=== PATIENT | female | born 1955 | race American Indian/Alaskan Native ===

== ENCOUNTER 2016-05-04 10:01 | Emergency (ER) | payer MEDICARE ==
[2016-05-04] MEDS ORDERED: TORADOL IM ONE (14:23)
[2016-05-04] MEDS ORDERED: DECADRON IM ONE (14:23)
[2016-05-04 15:34] VITALS: BP 168/100
--- NOTE | 2016-05-04 18:31 | Emergency Department Report ---
Entered by GARY AZUL, acting as scribe for YOU HENSON PA. ED Extremity Problem HPI - General Chief complaint: Extremity Problem,Nontraumatic Stated complaint: RT WRIST AND ELBOW PAIN/ARTHRITIS Time Seen by Provider: 05/04/16 14:28 Source: patient Mode of arrival: Ambulatory Limitations: No Limitations - History of Present Illness Initial comments: 60 y/o female with PMHx of diabetes and rheumatoid arthritis, presents to the ED c/o right wrist pain, right knee pain, and right elbow pain beginning intermittently 1 month ago and worsening yesterday. She states the symptoms are consistent with prior rheumatoid arthritis flareups. The symptoms are typically alleviated by cortisone injections in the affected joints, but she is unable to afford a follow-up visit with her wellness director. She denies SOB, chest pain, abdominal pain, nausea, vomiting, diarrhea, weakness, numbness, and recent injury to the affected areas. The symptoms are not alleviated with OTC ibuprofen -: month(s) (1 month, worse yesterday) Location: other (right knee, right wrist, right elbow) History of Same: Yes (Hx of rheumatoid arthritis, symptoms consistent with prior flareups) Radiation: none Severity scale (0 -10): 6 Consistency: intermittent Improves with: other (cortisone shots in joint) Worsens with: palpation Associated Symptoms: denies: chest pain, shortness of breath, fever, other ( nausea, vomiting diarrhea, abdominal pain, weakness, numbness) - Related Data Home Medications Medication Instructions Recorded Confirmed Last Taken Aspirin [Aspirin BABY CHEW TAB] 81 mg PO QDAY 01/18/15 01/18/15 01/18/15 Hydroxyurea [Hydrea] 500 mg PO DAILY 01/18/15 01/18/15 01/17/15 amLODIPine [Norvasc] 5 mg PO DAILY 01/18/15 01/18/15 01/17/15 \ Previous Rx's Medication Instructions Recorded Last Taken Type Hydroxyurea [Hydrea] 500 mg PO DAILY capsule 01/19/15 Unknown Rx ISOSORBIDE MONOnitrate [Imdur ER] 60 mg PO QDAY #30 tablet 01/19/15 Unknown Rx Metoprolol [Lopressor TAB] 50 mg PO BID #60 tablet 01/19/15 Unknown Rx Meloxicam [Mobic] 7.5 mg PO QDAY #30 tablet 05/04/16 Unknown Rx Allergies Allergy/AdvReac Type Severity Reaction Status Date / Time naproxen Allergy Hives Verified 01/18/15 01:47 ED Review of Systems Constitutional: denies: fever Respiratory: denies: shortness of breath Cardiovascular: denies: chest pain Gastrointestinal: denies: abdominal pain, nausea, vomiting, diarrhea Musculoskeletal: other (right wrist pain, right knee pain, right elbow pain) Neurological: denies: weakness, numbness ED Past Medical Hx - Past Medical History Hx Hypertension: Yes Hx Congestive Heart Failure: No Hx Diabetes: No Hx Asthma: No Hx COPD: No Additional medical history: POLYCYTHEMIA VERA - Surgical History Hx Appendectomy: Yes Additional Surgical History: HYSTERECTOMY - Social History Smoking Status: Never Smoker - Medications Home Medications: Home Medications Medication Instructions Recorded Confirmed Last Taken Type Aspirin [Aspirin BABY CHEW TAB] 81 mg PO QDAY 01/18/15 01/18/15 01/18/15 History Hydroxyurea [Hydrea] 500 mg PO DAILY 01/18/15 01/18/15 01/17/15 History amLODIPine [Norvasc] 5 mg PO DAILY 01/18/15 01/18/15 01/17/15 History \ Hydroxyurea [Hydrea] 500 mg PO DAILY capsule 01/19/15 Unknown Rx ISOSORBIDE MONOnitrate [Imdur ER] 60 mg PO QDAY #30 tablet 01/19/15 Unknown Rx Metoprolol [Lopressor TAB] 50 mg PO BID #60 tablet 01/19/15 Unknown Rx Meloxicam [Mobic] 7.5 mg PO QDAY #30 tablet 05/04/16 Unknown Rx ED Physical Exam - General Limitations: No Limitations General appearance: alert, in no apparent distress - Head Head exam: Present: atraumatic, normocephalic - Eye Eye exam: Present: normal appearance - Neck Neck exam: Present: normal inspection, full ROM (supple). Absent: tenderness, lymphadenopathy - Respiratory Respiratory exam: Present: normal lung sounds bilaterally. Absent: respiratory distress - Cardiovascular Cardiovascular Exam: Present: regular rate, normal rhythm, normal heart sounds. Absent: systolic murmur, diastolic murmur, rubs, gallop - GI/Abdominal GI/Abdominal exam: Present: soft, normal bowel sounds. Absent: tenderness, guarding, rebound - Extremities Exam Extremities exam: Present: normal inspection, full ROM (right knee, right wrist , right elbow), tenderness (minimal right elbow,right knee and right wrist ), normal capillary refill (capillary refill is less than two seconds, peripheral pulses intact), joint swelling (right wrist). Absent: other (crepitus, deformity) - Back Exam Back exam: Present: normal inspection, full ROM. Absent: paraspinal tenderness , vertebral tenderness - Neurological Exam Neurological exam: Present: alert, oriented X3 - Psychiatric Psychiatric exam: Present: normal affect, normal mood - Skin Skin exam: Present: warm, dry, intact ED Course Vital Signs 05/04/16 11:35 Temperature 98.1 F Pulse Rate 78 Respiratory 20 Rate Blood Pressure 165/103 O2 Sat by Pulse 100 Oximetry ED Medical Decision Making - Lab Data Vital Signs 05/04/16 11:35 Temperature 98.1 F Pulse Rate 78 Respiratory 20 Rate Blood Pressure 165/103 O2 Sat by Pulse 100 Oximetry - Medical Decision Making 60 y/o female presents complaining of right wrist pain, right knee pain, and right elbow pain beginning intermittently 1 month ago and worsening yesterday. Positive for history of rheumatoid arthritis. Explained to patient that we were unable to give 20 shots at the emergency department. Patient was given Decadron and Toradol and reported some symptomatic relief. She is recommended to follow up with her wellness director. Patient is in no acute distress at this time. She will be discharged home and is encouraged to follow up with a primary care provider. She will be sent home on Meloxicam and is encouraged to return to the emergency room for any worsening symptoms. ED Disposition Clinical Impression: Rheumatoid arthritis Qualifiers: Rheumatoid arthritis location: multiple sites Rheumatoid factor presence: unspecified presence Qualified Code(s): M06.9 - Rheumatoid arthritis, unspecified Disposition: DISCHARGED TO HOME OR SELFCARE Is pt being admited?: No Does the pt Need Aspirin: No Condition: Stable Instructions: Rheumatoid Arthritis (ED) Additional Instructions: Follow-up with primary care provider and wellness director. Return to the emergency department if symptoms worsen. Prescriptions: Meloxicam [Mobic] 7.5 mg PO QDAY #30 tablet Referrals: CLINT MAYO MD [Other] - 3-5 Days JADYN JAUREGUI MD [Staff Physician] - 3-5 Days Forms: Work/School Release Form(ED) Time of Disposition: 15:19 This documentation as recorded by the enrriqueibJORGE ALBERTO betancourt GRACE,accurately reflects the service I personally performed and the decisions made by ,YOU HENSON PA.
== END 2016-05-04 15:33 | disposition home or self-care (01) ==
LOC: ED 10:01
DX: M06.9 Rheumatoid arthritis, unspecified (principal); I10 Essential (primary) hypertension
CPT/HCPCS: 96372; 99282; J1100; J1885

== ENCOUNTER 2020-05-17 11:15 | Observation (INO) | payer MEDICARE ==
--- NOTE | 2020-05-17 11:50 | Emergency Department Report ---
ED General Adult HPI - General Chief complaint: Syncope Stated complaint: SYNCOPE PUI?: No Time Seen by Provider: 05/17/20 11:35 Source: patient, EMS (Verbal report received from emergency medical services. EMS documentation not available at time of chart dictation ), RN notes reviewed, old records reviewed Mode of arrival: Stretcher Limitations: Altered Mental Status, Physical Limitation - History of Present Illness Initial comments: The patient was evaluated in the emergency department for symptoms described in the history of present illness. He/she was evaluated in the context of the global COVID-19 pandemic, which necessitated consideration that the patient might be at risk for infection with the virus that causes COVID-19. Institutional protocols and algorithms that pertain to the evaluation of patients at risk for COVID-19 are in a state of rapid change based on information released by regulatory bodies including the CDC and federal and state organizations. These policies and algorithms were followed during the patient's care in the emergency department. Please note that these policies, procedures and recommendations changed on a rapid basis. The patient is a 64-year-old female. She is not known to myself previously. She has a history of hypertension. She is brought to the hospital by EMS after episode of syncope at work. The patient is altered, and does not answer most of my questions. History entirely obtained from EMS, and from patient's coworkers, Officer Bernard, and Officer Jhonny. Apparently, the patient was in his usual state of health this morning, when she received bad news (a family member /.) Immediately after receiving this news, the patient loss consciousness. EMS and her accompanying coworkers tell me that she did not fall or hit her head, and that she was caught by passersby. EMS tells me that the patient had normal Accu-Chek in the field, was intermittently speaking to them in the field, and had a negative Warrington stroke scale. They do report that the patient was moving 4 extremities, but had to be assisted to a metal chair. In the emergency room, the patient is initially awake, but has her eyes closed, does not respond to my questions. She then responds to my questions very softly. She will not tell me if she is having physical pain. She does follow commands. She indicates that she is having global weakness. I extensively and exhaustively and multiple times counseled the patient that we needed her to participate with her physical examination and history, and provide open ended and close ended responses to the best of her ability, in order to exclude time sensitive conditions, such as stroke, myocardial infarction, and arrhythmia. Initially, the patient was nonverbal, and then became very softly verbal. However, she would speak in mostly 1 word and short sentences, and during her motor examination, was not able to lift up her bilateral upper extremities to a significant amount, and demonstrated 3.5 out of 5 strength in 4 extremities. Her colleagues tell me that her last known well time is 10:20 AM. Therefore, code stroke was called overhead. Of note, patient had a CT scan of her chest in 2017 at this hospital, which was negative for pulmonary embolism. She had a cardiac nuclear stress test at this hospital in 2014, which was negative for ischemic findings. The patient is not able to describe the qualitative nature of her symptoms, exacerbating factors, relieving factors, or aggravating factors -: hour(s) Quality: other Consistency: other Improves with: other Worsens with: other Associated Symptoms: other - Related Data Home Medications Medication Instructions Recorded Confirmed Last Taken Aspirin [Aspirin BABY CHEW TAB] 81 mg PO QDAY 01/18/15 01/18/15 01/18/15 Hydroxyurea [Hydrea] 500 mg PO DAILY 01/18/15 01/18/15 01/17/15 amLODIPine 5 mg PO DAILY 01/18/15 01/18/15 01/17/15 \ Previous Rx's Medication Instructions Recorded Last Taken Type Hydroxyurea 500 mg PO DAILY capsule 01/19/15 Unknown Rx ISOSORBIDE MONOnitrate [Imdur ER] 60 mg PO QDAY #30 tablet 01/19/15 Unknown Rx Metoprolol [Lopressor TAB] 50 mg PO BID #60 tablet 01/19/15 Unknown Rx Meloxicam [Mobic] 7.5 mg PO QDAY #30 tablet 05/04/16 Unknown Rx Allergies Allergy/AdvReac Type Severity Reaction Status Date / Time naproxen Allergy Hives Verified 05/17/20 11:34 ED Review of Systems ROS: Stated complaint: SYNCOPE Other details as noted in HPI Comment: Unobtainable due to pts medical conditions ED Past Medical Hx - Past Medical History Previous Medical History?: Yes Hx Hypertension: Yes Hx Congestive Heart Failure: No Hx Diabetes: No Hx Asthma: No Hx COPD: No Additional medical history: POLYCYTHEMIA VERA - Surgical History Past Surgical History?: Yes Hx Appendectomy: Yes Additional Surgical History: HYSTERECTOMY - Social History Smoking Status: Never Smoker Substance Use Type: None - Medications Home Medications: Home Medications Medication Instructions Recorded Confirmed Last Taken Type Aspirin [Aspirin BABY CHEW TAB] 81 mg PO QDAY 01/18/15 01/18/15 01/18/15 History Hydroxyurea [Hydrea] 500 mg PO DAILY 01/18/15 01/18/15 01/17/15 History amLODIPine 5 mg PO DAILY 01/18/15 01/18/15 01/17/15 History \ Hydroxyurea 500 mg PO DAILY capsule 01/19/15 Unknown Rx ISOSORBIDE MONOnitrate [Imdur ER] 60 mg PO QDAY #30 tablet 01/19/15 Unknown Rx Metoprolol [Lopressor TAB] 50 mg PO BID #60 tablet 01/19/15 Unknown Rx Meloxicam [Mobic] 7.5 mg PO QDAY #30 tablet 05/04/16 Unknown Rx ED Physical Exam - General Limitations: Altered Mental Status, Physical Limitation General appearance: anxious, in distress - Head Head exam: Present: atraumatic, normocephalic - Eye Eye exam: Present: normal appearance, PERRL, EOMI, other (Patient initially rolls her eyes upwards when I attempt to do a pupillary examination. She then opens her eyes and flutters them.). Absent: nystagmus - ENT ENT exam: Present: normal exam, normal orophraynx, mucous membranes moist, normal external ear exam - Neck Neck exam: Present: normal inspection, full ROM. Absent: tenderness, meningismus - Respiratory Respiratory exam: Present: normal lung sounds bilaterally. Absent: respiratory distress, wheezes, rales, rhonchi, stridor, decreased breath sounds - Cardiovascular Cardiovascular Exam: Present: regular rate, normal rhythm, normal heart sounds. Absent: bradycardia, tachycardia, irregular rhythm, systolic murmur, diastolic murmur, rubs, gallop - GI/Abdominal GI/Abdominal exam: Present: soft. Absent: distended, tenderness, guarding, rebound, rigid, pulsatile mass - Extremities Exam Extremities exam: Present: normal inspection, full ROM, other (2+ pulses noted in the bilateral upper and lower extremities. There is no palpable cord. nega tive Homans sign. Muscular compartments are soft. The pelvis is stable.). Absent: pedal edema, calf tenderness - Back Exam Back exam: Present: normal inspection, full ROM. Absent: tenderness, CVA tenderness (R), CVA tenderness (L), paraspinal tenderness, vertebral tenderness - Neurological Exam Neurological exam: Present: altered, other (There is no facial droop. The tongue is midline. The extraocular movements are intact bilaterally. There is 3.5 out of 5 strength in 4 extremities. Sensation is intact to light touch in 4 extremities) - Psychiatric Psychiatric exam: Present: anxious. Absent: homicidal ideation, suicidal ideation - Skin Skin exam: Present: warm, dry, intact, normal color. Absent: rash ED Course Vital Signs 05/17/20 05/17/20 05/17/20 12:20 12:31 13:00 Temperature 98.7 F Pulse Rate 92 H 87 80 Respiratory 22 18 16 Rate Blood Pressure 169/84 164/89 O2 Sat by Pulse 96 100 100 Oximetry 05/17/20 05/17/20 05/17/20 14:00 14:21 14:37 Temperature Pulse Rate 74 Respiratory 13 18 18 Rate Blood Pressure 172/95 O2 Sat by Pulse 98 100 Oximetry - Reevaluation(s) Reevaluation #1: 05/17/20 11:54 Differential diagnosis, including but not limited to: Orthostasis, vagal event, structural cardiac disease, stroke, conversion disorder, electrolyte derangement, hypertensive urgency/press syndrome Assessment and plan: 64-year-old female who is hypertensive, with episode of syncope after receiving bad news, who appears to be globally weak, and will follow some commands, last known well time is 10:21 AM. Code stroke called overhead. Multiple times I explained to the patient the need for her to openly participate in her history and physical examination, and to provide open-ended and close ended answers and responses however, she was not able to do so fully, although she was able to participate her exam in a limited fashion. We will activate code stroke protocol to exclude time sensitive diagnosis, and obtain neurology recommendations as to the appropriateness of TPA for this patient. However, given the temporal course and sequence of events, I think it is unlikely that the patient will be experiencing disabling neurologic deficit that would require TPA. We will therefore obtain CT scan of the brain, and CT angiogram head and neck to exclude stroke, dissection, large vessel occlusion. We will check additional laboratory studies, EKG, and x-ray of the chest. We will reassess after initial data points During the patient's history and physical, she specifically denied homicidality, suicidality and overdose to myself. The patient tells me that she was very upset about her mother recently passing away 05/17/20 13:02 CT scan of the brain, CT angiogram head and neck negative for acute large vessel occlusion/emergent pathology. Patient awake, has intermittent effort and variable effort with her bilateral upper and lower extremities. This makes ischemic stroke very unlikely at this time, and risks of TPA outweigh benefits of TPA. Patient seen in conjunction with stroke neurology, Dr. Echevarria, who agrees with this assessment and recommendation. Remainder of laboratory studies pending, EKG pending. 05/17/20 13:59 Patient awake, alert, oriented, mental status and motor examination much improved. Patient now complaining of frontal headache, which started after she received her bad news. The headache is not sudden or thunderclap in nature. The headache is not maximal in intensity. The headache is not described as the worst headache of her life. She denies loss of taste and smell, hematemesis, bright red blood per rectum, dysuria, she is amenable to admission and hospitalization I have updated the patient on her current findings and laboratory studies, chemistry pending at this time 05/17/20 14:44 Chemistry unremarkable. Patient remains awake, alert, oriented, in no acute distress. 05/17/20 15:14 Dr Miller to admit ED Medical Decision Making - Lab Data Result diagrams: 05/17/20 12:22 05/17/20 13:21 Vital Signs 05/17/20 12:31 Temperature 98.7 F Pulse Rate 87 Respiratory 18 Rate Blood Pressure 169/84 O2 Sat by Pulse 100 Oximetry - EKG Data -: EKG Interpreted by Me EKG shows normal: sinus rhythm Rate: normal - EKG Data 05/17/20 13:59 EKG today's interpreted at 13: 22 Sinus rhythm, 79 bpm, normal axis, left ventricular hypertrophy, QTC prolonged, abnormal EKG, not a STEMI, unchanged from prior EKG from 01/2018. - Radiology Data Radiology results: report reviewed, image reviewed CT head/brain wo con INDICATION / CLINICAL INFORMATION: 64 years Female; MAIN. TECHNIQUE: Routine CT head without contrast. All CT scans at this location are performed using CT dose reduction for ALARA by means of automated exposure control. COMPARISON: None. FINDINGS: BRAIN / INTRACRANIAL CONTENTS: There is mild cerebral and pontine white matter disease most consistent with microvascular angiopathy. There is also mild cerebral atrophy. The particular system is correspondingly appropriate in size and configuration. There is no clear CT evidence of acute intracranial hemorrhage or significant mass effect. ORBITS: No significant abnormality of visualized orbits. SINUSES / MASTOIDS: There is notable opacification involving right sphenoid sinus indicative of presence of retention cyst or polyp. The remaining visualized paranasal sinuses are pneumatized. CRANIOCERVICAL JUNCTION: No significant abnormality. ADDITIONAL FINDINGS: None. IMPRESSION: 1. There is mild microvascular angiopathy without CT evidence of acute intracranial hemorrhage. The study was specified as code stroke and called emergently to Dr. Navarro in the ER at 11:14 AM Central standard time. Signer Name: Finesse Oseguera MD Signed: 05/17/2020 11:16 AM Workstation Name: [id number] CT angio head HISTORY: Stroke symptoms COMPARISON: CT head May 17, 2020. TECHNIQUE: CTA of the head is performed after IV contrast. 3-D/MIP reformats were postprocessed. Percentage stenosis is determined by direct quantitative measurements of diseased internal carotid artery diameter compared with normal distal internal carotid artery reference segments or by criteria similar to NASCET where applicable. All CT scans at this location are performed using CT dose reduction for ALARA by means of automated exposure control. FINDINGS: CTA HEAD: Intracranial internal carotid arteries: Mild atherosclerosis. No occlusion or significant stenosis. Anterior cerebral arteries: No occlusion or significant stenosis. Middle cerebral arteries: No occlusion or significant stenosis. Intracranial vertebral arteries: No occlusion or significant stenosis. Basilar artery: No occlusion or significant stenosis. Posterior cerebral arteries: No occlusion or significant stenosis. No aneurysm. Additional findings: None. IMPRESSION: 1. CTA HEAD: No large proximal vessel occlusion. Signer Name: Gonsalo Jenkins MD Signed: 05/17/2020 11:39 AM Workstation Name: [id number] CT angio neck INDICATION / CLINICAL INFORMATION: 64 years Female; MAIN. TECHNIQUE: Thin cut axial images obtained through the head during IV bolus contrast administration. Sagittal, coronal, and 3 plane MIP reconstructions performed by the technologist. NASCET type criteria used evaluate stenoses. All CT scans at this location are performed using CT dose reduction for ALARA by means of automated exposure control. COMPARISON: None available. FINDINGS: CAROTID ARTERIES: The motion and beam hardening degrade the image quality at. There are small foci of calcification at the carotid bifurcations bilaterally at. However, there is no clear CTA evidence of significant stenosis of the internal carotid arteries by NASCET criteria. VERTEBRAL ARTERIES: The proximal vertebral arteries are also obscured by the degree of beam hardening at. However, there is no clear CTA evidence of significant focal stenosis involving cervical segments at. A small focus of calcification is noted at the origin of the right vertebral artery at. ARCH: There is no evidence of significant stenosis involving arch vessels. ADDITIONAL FINDINGS: Advanced degenerative the disc changes at C5-6 and C6-7. There is slight anterolisthesis at C4-5. IMPRESSION: There is no CTA evidence of significant stenosis involving cervical carotid or vertebral arteries by NASCET criteria. There was some delay in the dictation of this exam in that the initial study was incomplete. The study was dictated on an emergent basis at 12:06 PM Central standard time. Signer Name: Finesse Oseguera MD Signed: 05/17/2020 12:07 PM Workstation Name: [id number] Critical care attestation.: If time is entered above; I have spent that time in minutes in the direct care of this critically ill patient, excluding procedure time. ED Disposition Clinical Impression: Syncope, Altered mental status, Weakness, Anemia Disposition: OP ADMIT IP TO THIS HOSP Is pt being admited?: Yes Does the pt Need Aspirin: Yes Condition: Stable Instructions: Syncope (ED) Referrals: PRIMARY CARE, [Primary Care Provider] - 3-5 Days - Assessment Assessment Interval: Baseline - Level of Consciousness 1a. Level of Consciousness: arousable/minor stimuli - LOC Questions 1b. LOC Questions: answers both correctly - LOC Command 1c. LOC Commands: performs tasks correctly - Best Gaze 2. Best Gaze: normal (blinks in response to threat) - Visual 3. Visual: no visual loss - Facial Palsy 4. Facial Palsy: normal symmetrical movement - Motor Arm 5a. Motor Arm Left: some gravity effort 5b. Motor Arm Right: some gravity effort - Motor Leg 6a. Motor Leg Left: some gravity effort 6b. Motor Leg Right: some gravity effort - Limb Ataxia 7. Limb Ataxia: amputation (patient not able to participate in this exam) - Sensory 8. Sensory: normal - Best Language 9. Best Language: mild/moderate aphasia - Dysarthria 10. Dysarthria: mild/moderate dysarthria - Extinction and Inattention 11. Extinction/Inattention: visual/tactile inattention - Scoring Total Score: 12 Stroke Severity: Moderate Stroke
--- NOTE | 2020-05-17 12:20 | Cat Scan Report ---
CT head/brain wo con INDICATION / CLINICAL INFORMATION: 64 years Female; MAIN. TECHNIQUE: Routine CT head without contrast. All CT scans at this location are performed using CT dos e reduction for ALARA by means of automated exposure control. COMPARISON: None. FINDINGS: BRAIN / INTRACRANIAL CONTENTS: There is mild cerebral and pontine white matter disease most consisten t with microvascular angiopathy. There is also mild cerebral atrophy. The particular system is corres pondingly appropriate in size and configuration. There is no clear CT evidence of acute intracranial hemorrhage or significant mass effect. ORBITS: No significant abnormality of visualized orbits. SINUSES / MASTOIDS: There is notable opacification involving right sphenoid sinus indicative of prese nce of retention cyst or polyp. The remaining visualized paranasal sinuses are pneumatized. CRANIOCERVICAL JUNCTION: No significant abnormality. ADDITIONAL FINDINGS: None. IMPRESSION: 1. There is mild microvascular angiopathy without CT evidence of acute intracranial hemorrhage. The study was specified as code stroke and called emergently to Dr. Navarro in the ER at 11:14 AM [facility] standard time. Signer Name: Finesse Oseguera MD Signed: 05/17/2020 12:16 PM Workstation Name: [id number]
--- NOTE | 2020-05-17 12:30 | Consultation ---
Medications and Allergies Allergies Allergy/AdvReac Type Severity Reaction Status Date / Time naproxen Allergy Hives Verified 05/17/20 11:34 Home Medications Medication Instructions Recorded Confirmed Last Taken Type Aspirin [Aspirin BABY CHEW TAB] 81 mg PO QDAY 01/18/15 01/18/15 01/18/15 History Hydroxyurea [Hydrea] 500 mg PO DAILY 01/18/15 01/18/15 01/17/15 History amLODIPine 5 mg PO DAILY 01/18/15 01/18/15 01/17/15 History \ Hydroxyurea 500 mg PO DAILY capsule 01/19/15 Unknown Rx ISOSORBIDE MONOnitrate [Imdur ER] 60 mg PO QDAY #30 tablet 01/19/15 Unknown Rx Metoprolol [Lopressor TAB] 50 mg PO BID #60 tablet 01/19/15 Unknown Rx Meloxicam [Mobic] 7.5 mg PO QDAY #30 tablet 05/04/16 Unknown Rx Assessment and Plan [facility] Consult Note # Demographics Consult Type: 0-6 hour Stroke First Name: Libby Last Name: Flash Date of : 1955 Age: 64 Gender: female Time of initial page (Mary Alice Time): 05-17-2020, 09:53 Time of return call (Mary Alice Time): 05-17-2020, 09:53 # HPI Additional History: 64F with in the family, syncopal event and then 10:21 local time hysterical, passed out, this per materials handler who was present. No reported trauma with this event. Non-focal, generally weak. Patient reports feelilng weak all over. # Scores Time of exam and NIHSS ([facility]): 05-17-2020, 10:23:00 Level of Consciousness 1a: [0] = Alert; keenly responsive LOC Questions 1b: [0] = Answers both questions correctly LOC Commands 1c: [0] = Performs both tasks correctly Best Gaze 2: [0] = Normal Visual 3: [0] = No visual loss Facial Palsy 4: [0] = Normal symmetrical movements Motor Arm Left 5a: [1] = Drift Motor Arm Right 5b: [1] = Drift Motor Leg Left 6a: [1] = Drift Motor Leg Right 6b: [1] = Drift Limb Ataxia 7: [0] = Absent Sensory 8: [0] = Normal Best Language 9: [0] = No aphasia Dysarthria 10: [1] = [id number] dysarthria Extinction and Inattention 11: [0] = No abnormality NIHSS Total: 5 # PMH-FH-SH Past Medical History: hypertension # Data Time Head CT personally ready by me ( Time): 05-17-2020, 10:23:[address]: preliminarily reviewed by me, please refer to radiology read for official reading, no bleed CTA Head: preliminarily reviewed by me, please refer to radiology read for offi cial reading, no large vessel occlusion # Assessment Impression: Altered Mental Status, generally weak following emotional trauma. Effort variable, poorly sustained. Stroke is not felt to be the most likely etiology for her presentation. Risk>benefit with available data. # Plan Thrombolytic/Intervention: NOT IV Alteplase or IA Intervention Alteplase Exclusion: other (see below), risk > benefit Intraarterial Exclusion: no large vessel occlusion (LVO) Other: I have discussed my recommendations with the referring provider Additional Recommendations: If not improving, consider MRI brain. Disposition: admit Electronically signed at 05/17/2020 - 10:29 time by Justen Echevarria MD Electronically signed at 05/17/2020 - : time by Justen Echevarria MD
--- NOTE | 2020-05-17 12:43 | Cat Scan Report ---
CT angio head HISTORY: Stroke symptoms COMPARISON: CT head May 17, 2020. TECHNIQUE: CTA of the head is performed after IV contrast. 3-D/MIP reformats were postprocessed. Per centage stenosis is determined by direct quantitative measurements of diseased internal carotid arter y diameter compared with normal distal internal carotid artery reference segments or by criteria angi lar to NASCET where applicable. All CT scans at this location are performed using CT dose reduction f or ALARA by means of automated exposure control. FINDINGS: CTA HEAD: Intracranial internal carotid arteries: Mild atherosclerosis. No occlusion or significant stenosis. Anterior cerebral arteries: No occlusion or significant stenosis. Middle cerebral arteries: No occlusion or significant stenosis. Intracranial vertebral arteries: No occlusion or significant stenosis. Basilar artery: No occlusion or significant stenosis. Posterior cerebral arteries: No occlusion or significant stenosis. No aneurysm. Additional findings: None. IMPRESSION: 1. CTA HEAD: No large proximal vessel occlusion. Signer Name: Gonsalo Jenkins MD Signed: 05/17/2020 12:39 PM Workstation Name: [id number]
[2020-05-17 12:45] LABS: Hematocrit 28.4 % (30.3-42.9); Hemoglobin 9.2 gm/dl (10.1-14.3); Mean Corpuscular HGB Conc 32 % (30-34); Red Blood Count 4.12 M/mm3 (3.65-5.03)
[2020-05-17 12:48] LABS: Mean Corpuscular Volume 69 fl (79-97); Platelet Count 364 K/mm3 (140-440); Red Cell Distribution Width 24.4 % (13.2-15.2)
[2020-05-17 12:56] LABS: INR 1.26 (0.87-1.13); Partial Thromboplastin Time 34.2 Sec. (24.2-36.6); Thrombin Time 18.4 Sec. (15.1-19.6)
--- NOTE | 2020-05-17 13:11 | Cat Scan Report ---
CT angio neck INDICATION / CLINICAL INFORMATION: 64 years Female; MAIN. TECHNIQUE: Thin cut axial images obtained through the head during IV bolus contrast administration. S agittal, coronal, and 3 plane MIP reconstructions performed by the technologist. NASCET type criteria used evaluate stenoses. All CT scans at this location are performed using CT dose reduction for ALAR A by means of automated exposure control. COMPARISON: None available. FINDINGS: CAROTID ARTERIES: The motion and beam hardening degrade the image quality at. There are small foci of calcification at the carotid bifurcations bilaterally at. However, there is no clear CTA evidence of significant stenosis of the internal carotid arteries by NASCET criteria. VERTEBRAL ARTERIES: The proximal vertebral arteries are also obscured by the degree of beam hardening at. However, there is no clear CTA evidence of significant focal stenosis involving cervical segment s at. A small focus of calcification is noted at the origin of the right vertebral artery at. ARCH: There is no evidence of significant stenosis involving arch vessels. ADDITIONAL FINDINGS: Advanced degenerative the disc changes at C5-6 and C6-7. There is slight anterol isthesis at C4-5. IMPRESSION: There is no CTA evidence of significant stenosis involving cervical carotid or vertebral arteries by NASCET criteria. There was some delay in the dictation of this exam in that the initial study was incomplete. The stud y was dictated on an emergent basis at 12:06 PM [facility] standard time. Signer Name: Finesse Oseguera MD Signed: 05/17/2020 1:07 PM Workstation Name: [id number]
[2020-05-17 13:48] LABS: Bilirubin,Urine NEG (Negative); Blood,Urine NEG (Negative); Color,Urine Straw (Yellow); Urobilinogen,Urine < 2.0 mg/dL (<2.0)
[2020-05-17 13:56] LABS: Amphetamine Screen,Urine Negative; Benzodiazepines Screen,Urine Negative; Cannabinoid Screen,Urine Negative; Cocaine Screen,Urine Negative; Methadone Screen,Urine Negative; Opiate Screen,Urine Negative
[2020-05-17] MEDS ORDERED: ACETAMINOPHEN 325 MG TAB PO ONE (13:58)
[2020-05-17] MEDS ORDERED: METOCLOPRAMIDE 10 MG/2 ML INJ IV ONE (13:58)
[2020-05-17] MEDS ORDERED: diphenhydrAMINE 50 MG/ML VIAL IV ONE (13:58)
[2020-05-17 14:01] LABS: Total Cells Counted 100
[2020-05-17 14:01] LABS: Alanine Aminotransferase 9 units/L (7-56); Albumin 3.4 g/dL (3.9-5); Blood Urea Nitrogen 10 mg/dL (7-17); Calcium 7.8 mg/dL (8.4-10.2); Hemolysis Index 2
[2020-05-17 14:02] LABS: Anisocytosis 2+; Band Neutrophils # (Manual) 0.9 K/mm3; Hypochromasia 1+; Myelocytes # (Manual) 0.1 K/mm3; Poikilocytosis 3+
[2020-05-17 14:03] LABS: Helmet Cells Rare; Ovalocytes Few; Tear Drop Cells 2+
[2020-05-17 14:04] LABS: Platelet Estimate Consistent w Auto
[2020-05-17 14:06] LABS: BUN/Creatinine Ratio 14
--- NOTE | 2020-05-17 14:22 | XRay Report ---
CHEST 1 VIEW INDICATION: syncope. COMPARISON: 01/25/2018 FINDINGS: Support devices: None. Heart: Within normal limits. Lungs/Pleura: No acute air space or interstitial disease. Additional findings: None. IMPRESSION: No acute findings. Signer Name: Waldo aGrcia Jr, MD Signed: 05/17/2020 2:13 PM Workstation Name: [id number]
[2020-05-17] MEDS ORDERED: CLOPIDOGREL 75 MG TAB PO ONE (15:15)
[2020-05-17] MEDS: CLOPIDOGREL 75 MG TAB PO SCH (18:06)
[2020-05-17] MEDS ORDERED: HYDROXYUREA 500 MG CAP PO PRN (21:15)
[2020-05-17] MEDS ORDERED: ONDANSETRON 4 MG/2 ML INJ IV PRN (21:16)
[2020-05-17] MEDS ORDERED: HYDROmorphone 1 MG/1 ML INJ IV PRN (21:16)
[2020-05-17] MEDS ORDERED: oxyCODONE /ACETAMINOPHEN 5-325MG TAB PO PRN (21:16)
[2020-05-17] MEDS ORDERED: METOCLOPRAMIDE 10 MG/2 ML INJ IV PRN (21:16)
--- NOTE | 2020-05-17 21:23 | History and Physical Report ---
History of Present Illness Date of examination: 05/17/20 Date of admission: 05/17/20 15:14 Chief complaint: Passed out this morning History of present illness: 64-year-old female with history of hypertension brought in by EMS after an episode of syncope at work. Patient is also third and did not answer questions initially. Apparently her mother and on listening to the news she passed out. No chest pain. No diaphoresis. No shortness of breath. During my examination patient was coherent and able to answer all the questions appropriately. No second syncopal attacks in the past. Her mother this morning which made her very anxious and emotional and passed out. No fever or chills. No exposure to coronavirus - Past Medical History Previous Medical History?: Yes --Hypertension: Yes Additional medical history: POLYCYTHEMIA VERA - Surgical History Past Surgical History?: Yes --Appendectomy: Yes Additional Surgical History: HYSTERECTOMY - Social History Smoking Status: Never Smoker Substance Use Type: None Family history Htn Review of Systems ROS: Constitutional no weight loss or weight gain no fever or chills HEENT no sore throat no post nasal drip no diplopia Neck no neck stiffness no lymph gland enlargement Chest and lungs no shortness of breath cough or wheezing CVS no chest pain no diaphoresis no palpitations GI no nausea no vomiting no diarrhea Genitourinary system no dysuria no flank pain Musculoskeletal system no muscle pains no joint pains [employer] syncope x1 Skin no rash no itching Psychiatric no depression no homicidal or suicidal tendencies Hematologic no lymphedema or bruising Endocrine no polydipsia no polyuria no cold intolerance no heat intolerance Medications and Allergies Allergies Allergy/AdvReac Type Severity Reaction Status Date / Time naproxen Allergy Hives Verified 05/17/20 17:32 Home Medications Medication Instructions Recorded Confirmed Last Taken Type Aspirin [Aspirin BABY CHEW TAB] 81 mg PO QDAY 01/18/15 05/17/20 01/18/15 History Hydroxyurea [Hydrea] 500 mg PO DAILY PRN 01/18/15 05/17/20 01/17/15 History amLODIPine 5 mg PO DAILY 01/18/15 05/17/20 01/17/15 History \ Active Meds: Active Medications Clopidogrel Bisulfate (Clopidogrel 75 Mg Tab) 75 mg PO QDAY JANEEN Last Admin: 05/17/20 18:06 Dose: 75 mg Documented by: Exam - Constitutional Vitals: Temp Pulse Resp BP Pulse Ox 97.2 F L 78 16 141/74 99 05/17/20 19:35 05/17/20 18:00 05/17/20 19:35 05/17/20 19:35 05/17/20 20:32 General appearance: Present: no acute distress, well-nourished - EENT Eyes: Present: PERRL ENT: hearing intact, clear oral mucosa - Neck Neck: Present: supple, normal ROM - Respiratory Respiratory effort: normal Respiratory: bilateral: CTA - Cardiovascular Heart rate: 78 Rhythm: regular Heart Sounds: Present: S1 & S2. Absent: rub, click - Extremities Extremities: pulses symmetrical, No edema Peripheral Pulses: within normal limits - Abdominal General gastrointestinal: Present: soft, non-tender, non-distended, normal bowel sounds Female genitourinary: Present: normal - Rectal Rectal Exam: deferred - Integumentary Integumentary: Present: clear, warm, dry - Musculoskeletal Musculoskeletal: gait normal, strength equal bilaterally - Psychiatric Psychiatric: appropriate mood/affect, intact judgment & insight - Neurologic Neurologic: CNII-XII intact, moves all extremities - Allied Health Allied health notes reviewed: nursing, case management HEART Score - HEART Score History: Slightly suspicious Age: 45-65 Risk factors: 1-2 risk factors Troponin: Troponin T < 0.010 ng/mL (0.00-0.029) 05/17/20 13:21 Troponin: < normal limit Results - Labs CBC & Chem 7: 05/17/20 12:22 05/17/20 13:21 Labs: Laboratory Last Values WBC 8.5 K/mm3 (4.5-11.0) 05/17/20 12:22 RBC 4.12 M/mm3 (3.65-5.03) 05/17/20 12:22 Hgb 9.2 gm/dl (10.1-14.3) L 05/17/20 12:22 Hct 28.4 % (30.3-42.9) L 05/17/20 12:22 MCV 69 fl (79-97) L 05/17/20 12:22 MCH 22 pg (28-32) L 05/17/20 12:22 MCHC 32 % (30-34) 05/17/20 12:22 RDW 24.4 % (13.2-15.2) H 05/17/20 12:22 Plt Count 364 K/mm3 (140-440) 05/17/20 12:22 Add Manual Diff Complete 05/17/20 12:22 Total Counted 100 05/17/20 12:22 Seg Neuts % (Manual) 54.0 % (40.0-70.0) 05/17/20 12:22 Band Neutrophils % 11.0 % 05/17/20 12:22 Lymphocytes % (Manual) 14.0 % (13.4-35.0) 05/17/20 12:22 Monocytes % (Manual) 5.0 % (0.0-7.3) 05/17/20 12:22 Eosinophils % (Manual) 1.0 % (0.0-4.3) 05/17/20 12:22 Basophils % (Manual) 1.0 % (0.0-1.8) 05/17/20 12:22 Metamyelocytes % 13.0 % 05/17/20 12:22 Myelocytes % 1.0 % 05/17/20 12:22 Nucleated RBC % 1.0 % (0.0-0.9) H 05/17/20 12:22 Seg Neutrophils # Man 4.6 K/mm3 (1.8-7.7) 05/17/20 12:22 Band Neutrophils # 0.9 K/mm3 05/17/20 12:22 Lymphocytes # (Manual) 1.2 K/mm3 (1.2-5.4) 05/17/20 12:22 Abs React Lymphs (Man) 0.0 K/mm3 05/17/20 12:22 Monocytes # (Manual) 0.4 K/mm3 (0.0-0.8) 05/17/20 12:22 Eosinophils # (Manual) 0.1 K/mm3 (0.0-0.4) 05/17/20 12:22 Basophils # (Manual) 0.1 K/mm3 (0.0-0.1) 05/17/20 12:22 Metamyelocytes # 1.1 K/mm3 05/17/20 12:22 Myelocytes # 0.1 K/mm3 05/17/20 12:22 Promyelocytes # 0.0 K/mm3 05/17/20 12:22 Blast Cells # 0.0 K/mm3 05/17/20 12:22 WBC Morphology Not Reportable 05/17/20 12:22 Hypersegmented Neuts Not Reportable 05/17/20 12:22 Hyposegmented Neuts Not Reportable 05/17/20 12:22 Hypogranular Neuts Not Reportable 05/17/20 12:22 Smudge Cells Not Reportable 05/17/20 12:22 Toxic Granulation Not Reportable 05/17/20 12:22 Toxic Vacuolation Not Reportable 05/17/20 12:22 Dohle Bodies Not Reportable 05/17/20 12:22 Pelger-Huet Anomaly Not Reportable 05/17/20 12:22 Emili Rods Not Reportable 05/17/20 12:22 Platelet Estimate Consistent w auto 05/17/20 12:22 Clumped Platelets Not Reportable 05/17/20 12:22 Plt Clumps, EDTA Not Reportable 05/17/20 12:22 Large Platelets Not Reportable 05/17/20 12:22 Giant Platelets Not Reportable 05/17/20 12:22 Platelet Satelliting Not Reportable 05/17/20 12:22 Plt Morphology Comment Not Reportable 05/17/20 12:22 RBC Morphology Not Reportable 05/17/20 12:22 Dimorphic RBCs Not Reportable 05/17/20 12:22 Polychromasia Few 05/17/20 12:22 Hypochromasia 1+ 05/17/20 12:22 Poikilocytosis 3+ 05/17/20 12:22 Anisocytosis 2+ 05/17/20 12:22 Microcytosis 1+ 05/17/20 12:22 Macrocytosis Not Reportable 05/17/20 12:22 Spherocytes Not Reportable 05/17/20 12:22 Pappenheimer Bodies Not Reportable 05/17/20 12:22 Sickle Cells Not Reportable 05/17/20 12:22 Target Cells Not Reportable 05/17/20 12:22 Tear Drop Cells 2+ 05/17/20 12:22 Ovalocytes Few 05/17/20 12:22 Helmet Cells Rare 05/17/20 12:22 We[place] Bodies Not Reportable 05/17/20 12:22 Gilman Rings Not Reportable 05/17/20 12:22 Mejia Cells Not Reportable 05/17/20 12:22 Bite Cells Not Reportable 05/17/20 12:22 Crenated Cell Not Reportable 05/17/20 12:22 Elliptocytes Few 05/17/20 12:22 Acanthocytes (Spur) Not Reportable 05/17/20 12:22 Rouleaux Not Reportable 05/17/20 12:22 Hemoglobin C Crystals Not Reportable 05/17/20 12:22 Schistocytes Not Reportable 05/17/20 12:22 Malaria parasites Not Reportable 05/17/20 12:22 Jones Bodies Not Reportable 05/17/20 12:22 Hem Pathologist Commnt No 05/17/20 12:22 PT 15.8 Sec. (12.2-14.9) H 05/17/20 12:22 INR 1.26 (0.87-1.13) H 05/17/20 12:22 APTT 34.2 Sec. (24.2-36.6) 05/17/20 12:22 Thrombin Time 18.4 Sec. (15.1-19.6) 05/17/20 12:22 Sodium 138 mmol/L (137-145) 05/17/20 13:21 Potassium 3.9 mmol/L (3.6-5.0) 05/17/20 13:21 Chloride 107.2 mmol/L (98-107) H 05/17/20 13:21 Carbon Dioxide 25 mmol/L (22-30) 05/17/20 13:21 Anion Gap 10 mmol/L 05/17/20 13:21 BUN 10 mg/dL (7-17) 05/17/20 13:21 Creatinine 0.7 mg/dL (0.6-1.2) 05/17/20 13:21 Estimated GFR > 60 ml/min 05/17/20 13:21 BUN/Creatinine Ratio 14 % 05/17/20 13:21 Glucose 89 mg/dL (65-100) 05/17/20 13:21 POC Glucose 104 mg/dL (70-105) 05/17/20 11:49 Calcium 7.8 mg/dL (8.4-10.2) L 05/17/20 13:21 Magnesium 1.80 mg/dL (1.7-2.3) 05/17/20 13:21 Total Bilirubin 0.40 mg/dL (0.1-1.2) 05/17/20 13:21 AST 25 units/L (5-40) 05/17/20 13:21 ALT 9 units/L (7-56) 05/17/20 13:21 Alkaline Phosphatase 72 units/L (35-129) 05/17/20 13:21 Total Creatine Kinase 26 units/L (30-135) L 05/17/20 13:21 CK-MB (CK-2) 1.0 ng/mL (0.0-4.0) 05/17/20 13:21 CK-MB (CK-2) Rel Index 3.8 (0-4) 05/17/20 13:21 Troponin T < 0.010 ng/mL (0.00-0.029) 05/17/20 13:21 Total Protein 6.9 g/dL (6.3-8.2) 05/17/20 13:21 Albumin 3.4 g/dL (3.9-5) L 05/17/20 13:21 Albumin/Globulin Ratio 1.0 % 05/17/20 13:21 Urine Color Straw (Yellow) 05/17/20 Unknown Urine Turbidity Clear (Clear) 05/17/20 Unknown Urine pH 8.0 (5.0-7.0) H 05/17/20 Unknown Ur Specific [place] 1.017 (1.003-1.030) 05/17/20 Unknown Urine Protein 100 mg/dl mg/dL (Negative) 05/17/20 Unknown Urine Glucose (UA) Neg mg/dL (Negative) 05/17/20 Unknown Urine Ketones Neg mg/dL (Negative) 05/17/20 Unknown Urine Blood Neg (Negative) 05/17/20 Unknown Urine Nitrite Neg (Negative) 05/17/20 Unknown Urine Bilirubin Neg (Negative) 05/17/20 Unknown Urine Urobilinogen < 2.0 mg/dL (<2.0) 05/17/20 Unknown Ur Leukocyte Esterase Tr (Negative) 05/17/20 Unknown Urine WBC (Auto) 16.0 /HPF (0.0-6.0) H 05/17/20 Unknown Urine RBC (Auto) 2.0 /HPF (0.0-6.0) 05/17/20 Unknown U Epithel Cells (Auto) < 1.0 /HPF (0-13.0) 05/17/20 Unknown Salicylates < 0.3 mg/dL (2.8-20.0) L 05/17/20 12:22 Urine Opiates Screen Negative 05/17/20 Unknown Urine Methadone Screen Negative 05/17/20 Unknown Acetaminophen 5.0 ug/mL (10.0-30.0) L 05/17/20 12:22 Ur Barbiturates Screen Negative 05/17/20 Unknown Ur Phencyclidine Scrn Negative 05/17/20 Unknown Ur Amphetamines Screen Negative 05/17/20 Unknown U Benzodiazepines Scrn Negative 05/17/20 Unknown Urine Cocaine Screen Negative 05/17/20 Unknown U Marijuana (THC) Screen Negative 05/17/20 Unknown Drugs of Abuse Note Disclamer 05/17/20 Unknown Plasma/Serum Alcohol < 0.01 % (0-0.07) 05/17/20 12:22 - Imaging and Cardiology EKG: report reviewed (Sinus rhythm, no acute ST-T wave changes) Imaging and Cardiology: neck CTA No CT evidence of significant stenosis involving cervical carotid and vertebral arteries. Head CTA No large proximal vessel occlusion head CT There is mild microvascular angiopathy without CT evidence of acute intracranial hemorrhage Chest x-ray No acute findings Torrez/IV: Voiding Method Toilet Assessment and Plan Advance Directives: Yes (Full code) VTE prophylaxis?: Chemical Plan of care discussed with patient/family: Yes - Patient Problems (1) Autonomic dysfunction Current Visit: Yes Status: Acute Plan to address problem: Syncope secondary to autonomic imbalance Syncope work-up Carotid duplex scan and echocardiogram Echocardiogram to rule out hypertrophic cardiomyopathy and aortic stenosis and for ejection fraction. (2) Hypertension Current Visit: Yes Status: Chronic Qualifiers: Hypertension type: essential hypertension Qualified Code(s): I10 - Essential (primary) hypertension Plan to address problem: Continue amlodipine and adjust medications (3) Anemia Current Visit: Yes Status: Chronic Qualifiers: Anemia type: unspecified type Qualified Code(s): D64.9 - Anemia, unspecified Plan to address problem: Anemia work-up Iron studies folic acid and B12 requested (4) Hypocalcemia Current Visit: Yes Status: Acute Plan to address problem: Patient started on Caltrate D twice a day (5) Urinary tract infection Current Visit: Yes Status: Acute Qualifiers: Urinary tract infection type: acute cystitis Plan to address problem: Patient initiated on IV Rocephin 1 g every 24 (6) DVT prophylaxis Current Visit: Yes Status: Acute Plan to address problem: On heparin and GI prophylaxis
[2020-05-17] MEDS ORDERED: SODIUM CHLORIDE 0.9% 1000 ML 1,000 ML IV SCH (21:30)
[2020-05-17] MEDS: ASPIRIN 81 MG TAB CHEW PO SCH (21:44)
[2020-05-17] MEDS: FAMOTIDINE 20 MG TAB PO SCH (21:44)
[2020-05-17] MEDS: CALCIUM CARB/VIT D3/MINERALS 600 MG/800 UNITS TAB PO SCH (21:55)
[2020-05-17] MEDS: cefTRIAXone/NS 1 GM/50 ML 1 GM/50 ML BAG IV SCH (21:55)
[2020-05-17] MEDS: HEPARIN 5,000 UNIT/1 ML VIAL SUB-Q SCH (22:00)
[2020-05-17] MEDS: amLODIPine 5 MG TAB PO SCH (22:00)
[2020-05-18 06:02] LABS: Hematocrit 28.3 % (30.3-42.9); Hemoglobin 8.8 gm/dl (10.1-14.3); Mean Corpuscular HGB Conc 31 % (30-34); Platelet Count 363 K/mm3 (140-440); Red Blood Count 4.05 M/mm3 (3.65-5.03)
[2020-05-18 06:03] LABS: Mean Corpuscular Volume 70 fl (79-97); Red Cell Distribution Width 25.1 % (13.2-15.2)
[2020-05-18 06:04] LABS: Eosinophils % (Auto) 0.8 % (0.0-4.3); Lymphocytes % (Auto) 14.4 % (13.4-35.0); Monocytes % (Auto) 6.8 % (0.0-7.3)
[2020-05-18 06:05] LABS: Basophils # (Auto) 0.1 K/mm3 (0.0-0.1); Basophils % (Auto) 0.9 % (0.0-1.8); Eosinophils # (Auto) 0.1 K/mm3 (0.0-0.4); Monocytes # (Auto) 0.5 K/mm3 (0.0-0.8)
[2020-05-18 06:27] LABS: Alanine Aminotransferase 11 units/L (7-56); Albumin 3.7 g/dL (3.9-5); BUN/Creatinine Ratio 13; Blood Urea Nitrogen 12 mg/dL (7-17); Calcium 8.4 mg/dL (8.4-10.2); Hemolysis Index 3
[2020-05-18 07:08] LABS: % Iron Saturation 34.76 %
[2020-05-18] MEDS: ACETAMINOPHEN 325 MG TAB PO PRN ×2 (09:30→22:24)
[2020-05-18] MEDS: HEPARIN 5,000 UNIT/1 ML VIAL SUB-Q SCH ×2 (09:43→22:20)
[2020-05-18] MEDS: CALCIUM CARB/VIT D3/MINERALS 600 MG/800 UNITS TAB PO SCH ×2 (09:46→22:19)
[2020-05-18] MEDS: ASPIRIN 81 MG TAB CHEW PO SCH (09:47)
[2020-05-18] MEDS: CLOPIDOGREL 75 MG TAB PO SCH (09:48)
[2020-05-18] MEDS: amLODIPine 5 MG TAB PO SCH (09:49)
[2020-05-18] MEDS: FAMOTIDINE 20 MG TAB PO SCH ×2 (09:51→22:20)
--- NOTE | 2020-05-18 12:45 | Vascular Lab Report ---
DUPLEX DOPPLER ULTRASOUND CAROTID, BILATERAL INDICATION / CLINICAL INFORMATION: Syncope. COMPARISON: None available. FINDINGS: RIGHT CAROTID: - PLAQUE ESTIMATE (%): < 50% - CCA velocity: 69 cm/sec. - ICA peak systolic velocity: 116 cm/sec. - ICA/CCA PSV Ratio: 1.7 Right Vertebral Artery: Antegrade flow. LEFT CAROTID: - PLAQUE ESTIMATE: < 50% - CCA velocity: 88 cm/sec. - ICA peak systolic velocity: 117 cm/sec. - ICA/CCA PSV Ratio: 1.3 Left Vertebral Artery: Antegrade flow. IMPRESSION: 1. Right Internal Carotid Artery: Less than 50% diameter stenosis. 2. Left Internal Carotid Artery: Less than 50% diameter stenosis. Velocity criteria are extrapolated from diameter data as defined by the Society of Radiologists in [facility] Consensus Conference, Radiology 2003; 229;[id number]. NO STENOSIS (NORMAL) * Plaque = none; ICA PSV < 125 cm/sec; ICA/CCA PSV Ratio < 2.0 <50% STENOSIS * Plaque < 50%; ICA PSV < 125 cm/sec; ICA/CCA PSV Ratio < 2.0 50-69% STENOSIS * Plaque > 50%; ICA PSV = 125-230 cm/sec; ICA/CCA PSV Ratio = 2.0-4.0 >70% BUT <100% STENOSIS * Plaque > 50%; ICA PSV > 230 cm/sec; ICA/CCA PSV Ratio > 4.0 NEAR OCCLUSION * Plaque = visible lumen; ICA PSV = high/low/none; ICA/CCA PSV Ratio = variable TOTAL OCCLUSION * Plaque = no lumen; ICA PSV = none; ICA/CCA PSV Ratio = N/A Signer Name: Roman Simmons MD Signed: 05/18/2020 12:40 PM Workstation Name: [id number]
--- NOTE | 2020-05-18 17:28 | Progress Note ---
Assessment and Plan (1) Autonomic dysfunction Current Visit: Yes Status: Acute Plan to address problem: Syncope secondary to autonomic imbalance Syncope work-up: CT head without any acute process Carotid duplex scan and echocardiogram ordered and pending result Echocardiogram to rule out hypertrophic cardiomyopathy and aortic stenosis and for ejection fraction. (2) Hypertension Current Visit: Yes Status: Chronic Qualifiers: Hypertension type: essential hypertension Qualified Code(s): I10 - Essential (primary) hypertension Plan to address problem: Continue amlodipine and adjust medications (3) Anemia Current Visit: Yes Status: Chronic Qualifiers: Anemia type: unspecified type Qualified Code(s): D64.9 - Anemia, unspecified Plan to address problem: Anemia work-up Iron studies folic acid and B12 requested (4) Hypocalcemia Current Visit: Yes Status: Acute Plan to address problem: Patient started on Caltrate D twice a day (5) Urinary tract infection Current Visit: Yes Status: Acute Qualifiers: Urinary tract infection type: acute cystitis Plan to address problem: Patient initiated on IV Rocephin 1 g every 24 (6) DVT prophylaxis Current Visit: Yes Status: Acute Plan to address problem: On heparin and GI prophylaxis 05/18; patient states that she still feels lightheaded on ambulation. PT consulted, await for recommendation. Continue to follow clinically. Possible DC tomorrow if clears by PT. Subjective Date of service: 05/18/20 Interval history: Patient seen and examined. Medical records and medication list reviewed. No acute event overnight noted by the RN. Patient denies any chest pain or difficulty breathing. Patient is tolerating diet. Patient complains of mild dizziness on ambulation She states that she just received that her mother passed out and she believes because of the sudden news she most likely passed out Discussed plan of care at bedside with patient. Objective - Exam Narrative Exam: GENERAL: well-developed and well-nourished -[place] female lying on bed appeared to be in no discomfort. HEENT: Normocephalic. Atraumatic. No conjunctival congestion or icterus. Patient has moist mucous membranes. NECK: Supple. Trachea midline. CHEST/LUNGS: Clear to auscultated bilaterally, breathing nonlabored. No wheezes crackles or rhonchi. HEART/CARDIOVASCULAR: Regular in rate and rhythm. S1 and S2 positive. ABDOMEN: Abdomen is soft, nontender. Patient has normal bowel sounds. SKIN: There is no rash. Warm and dry. NEURO: No focal motor deficit. Follows command. MUSCULOSKELETAL: No joint effusion or tenderness. EXTRIMITY: No edema, no cyanosis or clubbing. PSYCH: Cooperative. - Constitutional Vitals: Vital Signs - 12hr 05/18/20 05/18/20 05/18/20 08:00 09:49 10:10 Pulse Rate 75 84 Respiratory Rate Blood Pressure 144/69 O2 Sat by Pulse 100 Oximetry 05/18/20 05/18/20 10:21 16:00 Pulse Rate 71 Respiratory 17 Rate Blood Pressure O2 Sat by Pulse 98 Oximetry - Labs CBC & Chem 7: 05/18/20 05:16 05/18/20 05:16 Labs: Abnormal lab results 05/18/20 05/18/20 05/18/20 Range/Units 05:16 05:16 05:16 Hgb 8.8 L (10.1-14.3) gm/dl Hct 28.3 L (30.3-42.9) % MCV 70 L (79-97) fl MCH 22 L (28-32) pg RDW 25.1 H (13.2-15.2) % Lymph # (Auto) 1.0 L (1.2-5.4) K/mm3 Seg Neutrophils % 77.1 H (40.0-70.0) % TIBC 187 L (250-450) mcg/dL Transferrin 168 L (192-382) mg/dl Albumin (3.9-5) g/dL Vitamin B12 > 2000 H (211-911) pg/mL 05/18/20 Range/Units 05:16 Hgb (10.1-14.3) gm/dl Hct (30.3-42.9) % MCV (79-97) fl MCH (28-32) pg RDW (13.2-15.2) % Lymph # (Auto) (1.2-5.4) K/mm3 Seg Neutrophils % (40.0-70.0) % TIBC (250-450) mcg/dL Transferrin (192-382) mg/dl Albumin 3.7 L (3.9-5) g/dL Vitamin B12 (211-911) pg/mL HEART Score - HEART Score Age: 45-65 Risk factors: 1-2 risk factors Troponin: Troponin T < 0.010 ng/mL (0.00-0.029) 05/17/20 13:21 Troponin: < normal limit
[2020-05-18] MEDS: cefTRIAXone/NS 1 GM/50 ML 1 GM/50 ML BAG IV SCH (22:19)
[2020-05-19] MEDS: HEPARIN 5,000 UNIT/1 ML VIAL SUB-Q SCH (09:15)
[2020-05-19] MEDS: CALCIUM CARB/VIT D3/MINERALS 600 MG/800 UNITS TAB PO SCH (09:15)
[2020-05-19] MEDS: ASPIRIN 81 MG TAB CHEW PO SCH (09:15)
[2020-05-19] MEDS: amLODIPine 5 MG TAB PO SCH (09:15)
[2020-05-19] MEDS: CLOPIDOGREL 75 MG TAB PO SCH (09:15)
[2020-05-19] MEDS: FAMOTIDINE 20 MG TAB PO SCH (09:15)
[2020-05-19] MEDS ORDERED: diphenhydrAMINE 25 MG CAP PO ONE (11:40)
[2020-05-19] MEDS ORDERED: hydrOXYzine HCL 10 MG TAB PO PRN (12:00)
--- NOTE | 2020-05-19 12:03 | Discharge Summary ---
Providers - Providers Date of Admission: 05/17/20 15:14 Date of discharge: 05/19/20 Attending physician: BETH SILVA 05/18/20 08:31 Physical Therapy Evaluation and Treat [CONS] Routine Comment: Reason For Exam: debility Primary care physician: SHOE SINGER Hospitalization Condition: Stable Pertinent studies: Chest x-ray, head CT CTA, neck CTA, carotid Doppler, 2D echo Hospital course: This is a 64-year-old female with history of hypertension presented to the ER by EMS after having an episode of syncope at work. Patient stated that when she was working at her working place she got the news that her mother . After that she she apparently passed out and now unable to speak and was in coherent. Patient was then immediately transferred to [facility] for further evaluation and management. Patient was admitted for further evaluation and management. Head CT CTA, neck CTA did not show any acute process. Chest x-ray without infiltrates, 2D echocardiogram showed preserved EF, carotid Doppler showed less than 50% stenosis bilaterally. Patient was monitored overnight and no further arrhythmia or acute event noted. Patient was then discharged home in stable condition with outpatient follow-up. Patient does mention that she has history of polycythemia vera but her work-up with showed microcytic anemia. Patient was recommended to follow-up with physical chemist as outpatient which patient verbalized understanding. Disposition: - TO HOME OR SELFCARE Final Discharge Diagnosis (Prints w/discharge instructions): Autonomic dysfunction/Vasovagal syncope, hypertension, chronic anemia, hypercalcemia, UTI. Time spent for discharge: 32 minutes Core Measure Documentation - Palliative Care Palliative Care/ Comfort Measures: Not Applicable - Core Measures Any of the following diagnoses?: none Exam - Physical Exam Narrative exam: GENERAL: well-developed and well-nourished -[place] female lying on bed appeared to be in no discomfort. HEENT: Normocephalic. Atraumatic. No conjunctival congestion or icterus. Patient has moist mucous membranes. NECK: Supple. Trachea midline. CHEST/LUNGS: Clear to auscultated bilaterally, breathing nonlabored. No wheezes crackles or rhonchi. HEART/CARDIOVASCULAR: Regular in rate and rhythm. S1 and S2 positive. ABDOMEN: Abdomen is soft, nontender. Patient has normal bowel sounds. SKIN: There is no rash. Warm and dry. NEURO: No focal motor deficit. Follows command. MUSCULOSKELETAL: No joint effusion or tenderness. EXTRIMITY: No edema, no cyanosis or clubbing. PSYCH: Cooperative. - Constitutional Vitals: Temp Pulse Resp BP Pulse Ox 98.0 F 76 18 146/80 100 05/19/20 07:38 05/19/20 08:56 05/19/20 07:38 05/19/20 07:38 05/19/20 09:50 Plan Activity: advance as tolerated Weight Bearing Status: Weight Bear as Tolerated Diet: low fat, low salt Additional Instructions: Follow-up with PCP in 1 week. Please come back if your symptoms worsen. Please monitor your blood pressure daily. please f/u with heamatologist in one week Follow up with: PRIMARY CAREMD [Primary Care Provider] - 3-5 Days Prescriptions: hydrOXYzine HCL [Atarax] 10 mg PO Q6H PRN #10 tablet PRN Reason: Itching
[2020-05-19 12:48] VITALS: BP 148/71
--- NOTE | 2020-05-20 10:28 | Electrocardiograph Report ---
[facility] Test Date: 2020-05-17 Test Time: 13:22:09 Pat Name: BIANCA SAMANIEGO Department: Room: A485 Gender: F Strategic Communications Specialist: [employer] : [id number] Requested By: SEVERIANO WHITE Order Number: [id number] Reading MD: Penny Isaacs Measurements Intervals [place] Rate: 79 P: 62 MN: 143 QRS: 25 QRSD: 88 T: 73 QT: 396 QTc: 454 Interpretive Statements Sinus rhythm No previous ECG available for comparison Electronically Signed On 05-20-2020 10:27:59 EDT by Penny Isaacs
== END 2020-05-19 14:19 | disposition home or self-care (01) ==
LOC: ED 11:15 → 4A 15:14
PROVIDERS: ADMIT Internal Medicine; ATTEND Internal Medicine
DX: R55 Syncope and collapse (principal); D64.9 Anemia, unspecified; I10 Essential (primary) hypertension; E83.51 Hypocalcemia; N39.0 Urinary tract infection, site not specified; D75.1 Secondary polycythemia; R53.1 Weakness; R41.82 Altered mental status, unspecified; M79.89 Other specified soft tissue disorders; Z90.710 Acquired absence of both cervix and uterus; Z90.49 Acquired absence of other specified parts of digestive tract; Z79.82 Long term (current) use of aspirin; Z79.899 Other long term (current) drug therapy
CPT/HCPCS: 36415; 70450; 70496; 70498; 71045; 80053; 80307; 81001; 82550; 82553; 82607; 82747; 82962; 83036; 83550; 83735; 84443; 84484; 85007; 85025; 85610; 85670; 85730; 87086; 93005; 93306; 93880; 96361; 96365; 96366; 96372; 96375; 97161; 99285; G0378; J0696; J1200; J1644; J2765; J7030; Q9967; 80320; G0480

== ENCOUNTER 2020-07-24 06:37 | Emergency (ER) | payer MEDICARE ==
[2020-07-24 07:57] VITALS: BP 158/86
[2020-07-24] MEDS ORDERED: KETOROLAC 60 MG/2 ML INJ IM ONE (08:03)
[2020-07-24] MEDS ORDERED: dexAMETHasone 4 MG/ML VIAL IM STA (08:03)
[2020-07-24 08:48] LABS: Hematocrit 32.3 % (30.3-42.9); Hemoglobin 10.1 gm/dl (10.1-14.3); Mean Corpuscular HGB Conc 31 % (30-34); Red Blood Count 4.76 M/mm3 (3.65-5.03)
[2020-07-24 08:49] LABS: Mean Corpuscular Volume 68 fl (79-97); Platelet Count 412 K/mm3 (140-440); Red Cell Distribution Width 23.9 % (13.2-15.2)
[2020-07-24 09:14] LABS: Alanine Aminotransferase 12 units/L (7-56); BUN/Creatinine Ratio 11; Blood Urea Nitrogen 10 mg/dL (7-17); Calcium 9.5 mg/dL (8.4-10.2); Hemolysis Index 0; Uric Acid 7.5 mg/dL (3.5-7.6)
[2020-07-24 09:22] LABS: Band Neutrophils # (Manual) 1.4 K/mm3; Myelocytes # (Manual) 0.2 K/mm3; Total Cells Counted 100
[2020-07-24 09:23] LABS: Anisocytosis 2+
[2020-07-24 09:24] LABS: Hypochromasia 2+; Poikilocytosis 2+; Tear Drop Cells 2+
[2020-07-24 09:25] LABS: Platelet Estimate Consistent w Auto
== END 2020-07-24 09:40 | disposition home or self-care (01) ==
LOC: ED 06:37
DX: M10.9 Gout, unspecified (principal); M25.531 Pain in right wrist; I10 Essential (primary) hypertension; M19.91 Primary osteoarthritis, unspecified site; Z90.710 Acquired absence of both cervix and uterus; Z90.49 Acquired absence of other specified parts of digestive tract; Z79.899 Other long term (current) drug therapy; Z88.8 Allergy status to other drugs, medicaments and biological substances
CPT/HCPCS: 36415; 80053; 84550; 85007; 85025; 96372; 99283; J1100; J1885

== ENCOUNTER 2020-10-26 14:06 | Emergency (ER) | payer MEDICARE ==
--- NOTE | 2020-10-26 16:22 | Emergency Department Report ---
- General Chief Complaint: Upper Respiratory Infection Stated Complaint: SOB Time Seen by Provider: 10/26/20 16:20 Source: patient Mode of arrival: Ambulatory Limitations: No Limitations - History of Present Illness Initial Comments: Patient is a 65-year-old female presents emergency room with complaints of shortness of breath that began 2 days ago. She has associated dry cough. She denies any fever, vomiting, diarrhea, body aches, sore throat, ear pain, chest pain, leg swelling, pleuritic pain. She denies any recent travel or sick contacts. She has not been vaccinated for COVID-19. She states that she is concerned that she may have COVID-19 and she plans to get an outpatient test tomorrow. She has a past medical history of chronic hypertension and arthritis. She has an allergy to naproxen. She states that she has never been a smoker. - Related Data Home Medications Medication Instructions Recorded Confirmed Last Taken Aspirin [Aspirin BABY CHEW TAB] 81 mg PO QDAY 01/18/15 05/17/20 01/18/15 amLODIPine 5 mg PO DAILY 01/18/15 05/17/20 01/17/15 \ Previous Rx's Medication Instructions Recorded Last Taken Type hydrOXYzine HCL [Atarax] 10 mg PO Q6H PRN #10 tablet 05/19/20 Unknown Rx predniSONE [Deltasone] 20 mg PO BID PRN #6 tab 07/24/20 Unknown Rx Azithromycin [Zithromax TAB] 250 mg PO QDAY 5 Days #6 tablet 10/26/20 Unknown Rx Dexamethasone 6 mg PO DAILY 7 Days #7 tab 10/26/20 Unknown Rx Furosemide [Lasix] 20 mg PO QDAY 5 Days #5 tablet 10/26/20 Unknown Rx Potassium Chloride [K-Dur] 20 meq PO QDAY 5 Days #5 tablet 10/26/20 Unknown Rx Allergies Allergy/AdvReac Type Severity Reaction Status Date / Time naproxen Allergy Hives Verified 05/17/20 17:32 ED Review of Systems ROS: Stated complaint: SOB Other details as noted in HPI Comment: All other systems reviewed and negative ED Past Medical Hx - Past Medical History Hx Hypertension: Yes Hx Congestive Heart Failure: No Hx Diabetes: No Hx Arthritis: Yes (gout) Hx Asthma: No Hx COPD: No Additional medical history: POLYCYTHEMIA VERA - Surgical History Hx Appendectomy: Yes Additional Surgical History: HYSTERECTOMY - Social History Smoking Status: Never Smoker Substance Use Type: Prescribed - Medications Home Medications: Home Medications Medication Instructions Recorded Confirmed Last Taken Type Aspirin [Aspirin BABY CHEW TAB] 81 mg PO QDAY 01/18/15 05/17/20 01/18/15 History amLODIPine 5 mg PO DAILY 01/18/15 05/17/20 01/17/15 History \ hydrOXYzine HCL [Atarax] 10 mg PO Q6H PRN #10 tablet 05/19/20 Unknown Rx predniSONE [Deltasone] 20 mg PO BID PRN #6 tab 07/24/20 Unknown Rx Azithromycin [Zithromax TAB] 250 mg PO QDAY 5 Days #6 tablet 10/26/20 Unknown Rx Dexamethasone 6 mg PO DAILY 7 Days #7 tab 10/26/20 Unknown Rx Furosemide [Lasix] 20 mg PO QDAY 5 Days #5 tablet 10/26/20 Unknown Rx Potassium Chloride [K-Dur] 20 meq PO QDAY 5 Days #5 tablet 10/26/20 Unknown Rx ED Physical Exam - General Limitations: No Limitations General appearance: alert, in no apparent distress - Head Head exam: Present: atraumatic, normocephalic - Eye Eye exam: Present: normal appearance - ENT ENT exam: Present: mucous membranes moist - Respiratory Respiratory exam: Present: normal lung sounds bilaterally. Absent: respiratory distress, wheezes, rales, rhonchi, stridor, chest wall tenderness, accessory muscle use, decreased breath sounds, prolonged expiratory - Cardiovascular Cardiovascular Exam: Present: regular rate, normal rhythm, normal heart sounds. Absent: systolic murmur, diastolic murmur, rubs, gallop - Neurological Exam Neurological exam: Present: alert, oriented X3 - Psychiatric Psychiatric exam: Present: normal affect, normal mood - Skin Skin exam: Present: warm, dry, intact ED Course Vital Signs 10/26/20 10/26/20 14:06 17:19 Temperature 99.0 F Pulse Rate 97 H 98 H Respiratory 18 18 Rate Blood Pressure 181/100 162/98 [Left] O2 Sat by Pulse 99 99 Oximetry ED Medical Decision Making - Radiology Data Radiology results: report reviewed Ordering Physician: DARRELL QURESHI Date of Service: 10/26/20 Procedure(s): XR chest routine 2V Accession Number(s): [id number] cc: DARRELL QURESHI Fluoro Time In Minutes: CHEST 2 VIEWS INDICATION / CLINICAL INFORMATION: sob, dry cough. COMPARISON: 05/17/2020 FINDINGS: SUPPORT DEVICES: None. HEART / MEDIASTINUM: No significant abnormality. LUNGS / PLEURA: There is mild venous congestion. There is mild patchy parenchymal opacities mid and lower lung zones No pneumothorax. ADDITIONAL FINDINGS: No significant additional findings. IMPRESSION: 1. There is mild venous congestion. There is mild patchy airspace opacity in the lower lung zones which could represent edema or pneumonia. Signer Name: Rj Nair MD Signed: 10/26/2020 4:53 PM Workstation Name: [id number] Transcribed By: SS Dictated By: Rj Nair MD Electronically Authenticated By: Rj Nair MD Signed Date/Time: 10/26/201652 DD/ 51 TD/TT: - Medical Decision Making Patient is a 65-year-old female presents emergency room with complaints of shortness of breath that began 2 days ago. She has associated dry cough. She denies any fever, vomiting, diarrhea, body aches, sore throat, ear pain, chest pain, leg swelling, pleuritic pain. She denies any recent travel or sick contacts. She has not been vaccinated for COVID-19. She states that she is concerned that she may have COVID-19 and she plans to get an outpatient test tomorrow. She has a past medical history of chronic hypertension and arthritis. She has an allergy to naproxen. She states that she has never been a smoker. Initial vitals with elevated blood pressure which improved upon repeat, no hyp oxia, no fever. On exam breath sounds are clear bilaterally, no wheezing, no rales, no rhonchi. Chest x-ray: 1. There is mild venous congestion. There is mild patchy airspace opacity in the lower lung zones which could represent edema or pneumonia. Discussed case with Dr. Hollins, ER attending who reviewed images, he thinks likely pneumonia, he states could possibly be secondary to a COVID-19 pneumonia. Discussed all results with patient and answered questions. Patient given prescription for medications. Patient will be referred to primary care doctor and to a electric organ assembler as well. Advised patient Please take medication as prescribed. May take Tylenol as needed for fever or body aches. May take [id number] cold symptom relief medication such Follow-up with a primary care doctor for reexamination. follow up with a electric organ assembler. Return to emergency room immediately for any new or worsening symptoms including but not limited to difficulty breathing, shortness of breath, severe chest pain, unable to tolerate by mouth intake, etc. Please self quarantine for 10 days from the onset of your symptoms. Recommend for you to get outpatient COVID-19 testing. Recommend for you to get a pulse oximetry meter [id number] and if your oxygen is below 93% please return to the emergency room immediately. Recommend for you to follow-up with your primary care doctor regarding elevation of blood pressure during today's visit, keep a blood pressure log, eat a low- sodium diet, incorporate 30 to 60 minutes of aerobic exercise Critical care attestation.: If time is entered above; I have spent that time in minutes in the direct care of this critically ill patient, excluding procedure time. ED Disposition Clinical Impression: Venous congestion, Elevated blood pressure reading Pneumonia Qualifiers: Pneumonia type: due to unspecified organism Laterality: bilateral Lung location: lower lobe of lung Qualified Code(s): J18.9 - Pneumonia, unspecified organism Disposition: HOME / SELF CARE / HOMELESS Is pt being admited?: No Does the pt Need Aspirin: No Condition: Stable Instructions: COVID-19, Community-Acquired Pneumonia, Adult, Bacterial Pneumonia (ED) Additional Instructions: Please take medication as prescribed. May take Tylenol as needed for fever or body aches. May take [id number] cold symptom relief medication such Follow-up with a primary care doctor for reexamination. follow up with a electric organ assembler. Return to emergency room immediately for any new or worsening symptoms including but not limited to difficulty breathing, shortness of breath, severe chest pain, unable to tolerate by mouth intake, etc. Please self quarantine for 10 days from the onset of your symptoms. Recommend for you to get outpatient COVID-19 testing. Recommend for you to get a pulse oximetry meter [id number] and if your oxygen is below 93% please return to the emergency room immediately. Recommend for you to follow-up with your primary care doctor regarding elevation of blood pressure during today's visit, keep a blood pressure log, eat a low- sodium diet, incorporate 30 to 60 minutes of aerobic exercise Prescriptions: Dexamethasone 6 mg PO DAILY 7 Days #7 tab Potassium Chloride [K-Dur] 20 meq PO QDAY 5 Days #5 tablet Furosemide [Lasix] 20 mg PO QDAY 5 Days #5 tablet Azithromycin [Zithromax TAB] 250 mg PO QDAY 5 Days #6 tablet Referrals: JARRED LAI MD [Staff Physician] - 3-5 Days [facility] [Provider Group] - 3-5 Days ELOISA RIVERO MD [Staff Physician] - 3-5 Days (electric organ assembler ) Time of Disposition: 17:06 Print Language: MALTESE
--- NOTE | 2020-10-26 16:58 | XRay Report ---
CHEST 2 VIEWS INDICATION / CLINICAL INFORMATION: sob, dry cough. COMPARISON: 05/17/2020 FINDINGS: SUPPORT DEVICES: None. HEART / MEDIASTINUM: No significant abnormality. LUNGS / PLEURA: There is mild venous congestion. There is mild patchy parenchymal opacities mid and l ower lung zones No pneumothorax. ADDITIONAL FINDINGS: No significant additional findings. IMPRESSION: 1. There is mild venous congestion. There is mild patchy airspace opacity in the lower lung zones whi ch could represent edema or pneumonia. Signer Name: Rj Nair MD Signed: 10/26/2020 4:53 PM Workstation Name: [id number]
[2020-10-26 17:20] VITALS: BP 162/98
== END 2020-10-26 17:19 | disposition home or self-care (01) ==
LOC: ED 14:06
DX: J18.9 Pneumonia, unspecified organism (principal); I10 Essential (primary) hypertension; M10.9 Gout, unspecified; D75.1 Secondary polycythemia; Z98.890 Other specified postprocedural states; Z88.6 Allergy status to analgesic agent
CPT/HCPCS: 71046; 99283